=== PATIENT | male | born 1985 | race Caucasian/White ===

== ENCOUNTER 2016-05-24 20:57 | Emergency (ER) | payer BC, OTHER ==
[2016-05-24 21:16] VITALS: BP 139/79; PULSE 70; RESP 16; TEMP 98.8; O2SAT 96
[2016-05-24] MEDS ORDERED: DOXYCYCLINE 100 MG PREPACK#2 BTL TAKEHOME ONE (21:55)
--- NOTE | 2016-05-24 21:58 | UCPHY ---
H & P Time Seen by Provider: 05/24/16 21:41 Patient Type: New HPI/ROS: Over the past week this patient developed a burning rash started is left cheek after that it spread to his left shoulder and left upper chest. He did shave prior to the onset of the symptoms as avoid shaving since. He uses she same razor shaved his face is a did a shave his left shoulder. he admits "(he's) very hairy." He reports noticing some red bumps associated with this rash. He has never had this type of rash before. He had no other associated symptoms. He does the discomfort is about 4/10 slightly burning in nature. ROS: No fevers. No other constitutional symptoms. No rash elsewhere on his body. No intraoral rash. No cold symptoms recently. No new stressors for him recently. 7 point ROS is otherwise negative. Past Medical/Surgical History: He had chickenpox vaccine as a child. Physical Exam: Physical Exam Vital signs are normal. General: No acute distress HEENT: Atraumatic. Eyes: Pupils equal and react to light. Extraocular motions are intact. Lungs: No respiratory distress. Cardiac: Brisk capillary refill is intact throughout. Skin: There is a 3 x 2 cm area of red papules with slight crust to the left cheek and on close inspection with magnifying loops these seem to be oriented around hair follicles. Similar rashes present without any crusting to the left shoulder and left upper chest. These are scattered erythematous papules again located at her follicles. Neuro: Alert and oriented x3 with no sensorimotor deficits. Initial differential diagnosis: Folliculitis, doubt zoster given previous immunization and the fact that is not a dermatomal distribution. Contact dermatitis Constitutional: Initial Vital Signs Temperature (C) 37.1 C 05/24/16 21:12 Heart Rate 70 05/24/16 21:12 Respiratory Rate 16 05/24/16 21:12 Blood Pressure 139/79 H 05/24/16 21:12 O2 Sat (%) 96 05/24/16 21:12 O2 Delivery Mode Room Air Allergies/Adverse Reactions: No Known Allergies Allergy (Unverified 05/24/16 21:55) Home Medications: Medication Instructions Recorded Doxycycline Hyclate [Vibramycin 100 mg PO BID #18 cap 05/24/16 100 MG (*)] NK [No Known Home Meds] 05/24/16 MDM/Departure - MDM Medications Given: Discontinued Medications Doxycycline Hyclate (Vibramycin 100 Mg Prepack#2) 1 btl RONAL RIOSNOW ONE Stop: 05/24/16 21:56 Last Admin: 05/24/16 22:35 Dose: 1 btl ED Course/Re-evaluation: Doxycycline p.o.. I counseled regarding folliculitis encouraged him to discard the razor that he use when he developed the symptoms - Depart Disposition: Home, Routine, Self-Care Clinical Impression: Folliculitis Condition: Good Instructions: Folliculitis (ED) Additional Instructions: Diagnosis: Folliculitis Plan: Apply warm packs to affected area Doxycycline antibiotic Ibuprofen and/or Tylenol for discomfort as needed Clean the areas affected daily with warm soapy water. Discarded your razor the your using a get a new 1. Avoid direct contact with the affected areas in her kids until symptoms resolve Return for any significant worsening despite treatment plan It will likely take a few days for antibiotics to start working. Prescriptions: Doxycycline Hyclate [Vibramycin 100 MG (*)] 100 mg PO BID #18 cap Referrals: NONE *PRIMARY CARE P,. [Primary Care Provider] - As per Instructions - PQRS PQRS Measurement: NA
== END 2016-05-24 22:10 | disposition home or self-care (01) ==
LOC: CED 20:57
DX: L73.9 Follicular disorder, unspecified (principal)
CPT/HCPCS: 99203-PO; G0463-PO